=== PATIENT | female | born 1940 | race Caucasian/White ===

== ENCOUNTER → 2016-11-25 | Outpatient (CLI) | payer OTHER ==
[~2016-11-25] MED LIST: AMLO5TAB2 PO; GEMF600T3 PO; INSU100C5 SQ-INSULIN; LANTANOPROST EACHEYE; LANTUS SQ-INSULIN; LOSA1TAB16 PO; METF10002 PO; ONDA4TAB7 PO; OXYC-302 PO; SITA100T PO; VICODIN PO; ZANTAC PO
== END | disposition home or self-care (01) ==
LOC: CFH 07:28
PROVIDERS: ATTEND Internal Medicine Cardiovascular Disease
DX: I45.19 Other right bundle-branch block (principal); I10 Essential (primary) hypertension
CPT/HCPCS: 93306